=== PATIENT | female | born 1960 | race Caucasian/White ===

== ENCOUNTER 2021-08-10 11:58 | Emergency (ER) | payer SELFPAY ==
[~2021-08-10] VITALS: Ht 160 cm; Wt 72.6 kg
--- NOTE | 2021-08-10 11:58 | NUR ---
PT BROUGHT IN BY [facility], PLACED IN BED #6 AND ATTEMPTED TO TRIAGE. REPORT GIVEN TO NURSE
--- NOTE | 2021-08-10 12:04 | NUR ---
PT LEFT WITHOUT BEING SEEN BY MD.
== END 2021-08-10 12:04 | disposition left against medical advice (07) ==
LOC: SED 11:58
DX: F10.129 Alcohol abuse with intoxication, unspecified (principal); Y90.9 Presence of alcohol in blood, level not specified
CPT/HCPCS: 99283